=== PATIENT | female | born 1960 | race African-American/Black ===

== ENCOUNTER → 2017-04-29 | Outpatient (CLI) | payer BC | END | disposition home or self-care (01) | LOC: HKI 13:30 | DX: M17.0 Bilateral primary osteoarthritis of knee (principal) | CPT/HCPCS: G0463 ==

== ENCOUNTER → 2017-05-27 | Outpatient (CLI) | payer BC | END | disposition home or self-care (01) | LOC: HKI 13:28 | DX: M17.0 Bilateral primary osteoarthritis of knee (principal) | CPT/HCPCS: G0463 ==